=== PATIENT | male | born 1990 | race Caucasian/White ===

== ENCOUNTER 2018-02-04 22:29 | Inpatient (IN) | payer SELFPAY ==
[~2018-02-04] VITALS: Ht 190.5 cm; Wt 107.3 kg
[2018-02-04 22:33] VITALS: BP 168/101; PULSE 90; RESP 18; TEMP 97.4; O2SAT 100
[2018-02-04] MEDS ORDERED: ADENOSINE IV SOLN 3 MG/ML 2 ML VIAL ONE ×2 (22:45→22:55)
[2018-02-04] MEDS ORDERED: METOPROLOL TARTRATE 5 MG/5 ML VIAL IV PUSH STA (22:55)
[2018-02-04 22:57] VITALS: BP 139/99; PULSE 184; RESP 18; O2SAT 97
[2018-02-04 22:59] VITALS: BP 149/92; PULSE 177; RESP 18; O2SAT 97
[2018-02-04] MEDS ORDERED: DILTIAZEM HCL 25 MG/5 ML VIAL IV PUSH ONE (23:00)
[2018-02-04] MEDS ORDERED: DILTIAZEM HCL 50 MG/10 ML VIAL IV ONE (23:00)
[2018-02-04 23:06] VITALS: BP 166/77; PULSE 124; RESP 18; O2SAT 97
[2018-02-04 23:08] VITALS: BP 149/70; PULSE 108; O2SAT 97
--- NOTE | 2018-02-04 23:16 | PD ---
HPI Chief Complaint: Cardiac Complaint Time Seen by Provider: 23:03 Travel History International Travel<30 days: No Contact w/Intl Traveler<30days: No Traveled to known affect area: No History of Present Illness HPI 27yo M with no PMH presents to the ED with c/o fast heart rate for an hour. Said he has had this intermittently for 1.5 years but never lasted this long. Said he never seek any medical attention for this. Pt felt a little dizzy and sob as well. Denies any fever, chest pain, n/v, abdominal pain, focal weakness or numbness. Denies any family history of cardiac disease. PFSH Past Medical History Medical History: Denies Significant Hx Tetanus Vaccination: < 5 Years Influenza Vaccination: No Past Surgical History Surgical History: No Previous Surgery Social History Alcohol Use: No Tobacco Use: No Allergies-Medications (Allergen,Severity, Reaction): Coded Allergies: No Known Allergies (Unverified , 02/04/18) Review of Systems Except as stated in HPI: all other systems reviewed are Neg Physical Exam Narrative GENERAL: 27yo M in moderate distress. SKIN: Focused skin assessment warm/dry. HEAD: Atraumatic. Normocephalic. EYES: Pupils equal and round. No scleral icterus. No injection or drainage. ENT: No nasal bleeding or discharge. Mucous membranes pink and moist. NECK: Trachea midline. No JVD. CARDIOVASCULAR: Irregular rate and rhythm. No murmur appreciated. RESPIRATORY: No accessory muscle use. Clear to auscultation. Breath sounds equal bilaterally. GASTROINTESTINAL: Abdomen soft, non-tender, nondistended. MUSCULOSKELETAL: No obvious deformities. No clubbing. No cyanosis. No edema. NEUROLOGICAL: Awake and alert. No obvious cranial nerve deficits. Motor grossly within normal limits. Normal speech. PSYCHIATRIC: Appropriate mood and affect; insight and judgment normal. Data Data Last Documented VS Vital Signs Date Time Temp Pulse Resp B/P (MAP) Pulse Ox O2 Delivery O2 Flow Rate FiO2 02/05/18 01:15 101 18 126/71 (89) 100 Nasal Cannula 2.00 02/04/18 22:33 97.4 Orders Orders Adenosine Inj (Adenocard Inj) (02/04/18 22:45) Adenosine Inj (Adenocard Inj) (02/04/18 22:55) Metoprolol Tartrate Inj (Lopressor Inj) (02/04/18 22:55) Diltiazem Inj (Cardizem Inj) (02/04/18 23:00) Vital Signs (Adult) Q15MX4,Q4H (02/04/18 23:09) Sales Manager Prearranged Funerals / Telemetry LEON.Q8H (02/04/18 23:09) Cardiac Rhythm LEON.Q8H (02/04/18 23:09) Notify Dr: Other (02/04/18 23:09) Diltiazem Inj (Cardizem Inj) (02/04/18 23:15) Complete Blood Count With Diff (02/04/18 23:09) Basic Metabolic Panel (Bmp) (02/04/18 23:09) Prothrombin Time / Inr (Pt) (02/04/18 23:09) Act Partial Throm Time (Ptt) (02/04/18 23:09) Troponin I (02/04/18 23:09) Thyroid Stimulating Hormone (02/04/18 23:09) Chest, Single Ap (02/04/18 ) Adenosine Inj (Adenocard Inj) (02/04/18 23:45) Adenosine Inj (Adenocard Inj) (02/04/18 23:45) Diltiazem Inj (Cardizem Inj) (02/05/18 01:00) Admit To Inpatient (02/05/18 ) Vital Signs (Adult) Q4H (02/05/18 01:18) Activity Oob Ad Yi (02/05/18 01:18) Sales Manager Prearranged Funerals / Telemetry .CONTINUOUS (02/05/18 01:18) Intake + Output LEON.QSHIFT (02/05/18 01:18) Diet Regular Basic (02/05/18 Breakfast) Sodium Chlor 0.9% 1000 Ml Inj (Ns 1000 M (02/05/18 01:18) Sodium Chloride 0.9% Flush (Ns Flush) (02/05/18 01:30) Sodium Chloride 0.9% Flush (Ns Flush) (02/05/18 09:00) Ondansetron Inj (Zofran Inj) (02/05/18 01:30) Comprehensive Metabolic Panel (02/06/18 06:00) Complete Blood Count With Diff (02/06/18 06:00) Troponin I (02/05/18 06:00) Troponin I (02/05/18 12:00) Scd Bilateral/Knee High LEON.BID (02/05/18 01:18) Bravo Bilateral/Knee High LEON.QSHIFT (02/05/18 01:20) Acetaminophen (Tylenol) (02/05/18 01:30) Acetamin-Hydrocod 325-5 Mg ([place] 5-325 (02/05/18 01:30) Acetamin-Hydrocod 325-10 Mg ([place] 10-32 (02/05/18 01:30) Docusate Sodium-Senna (Sharron-Colace) (02/05/18 09:00) Magnesium Hydroxide Liq (Milk Of Magnesi (02/05/18 01:30) Sennosides (Senokot) (02/05/18 01:30) Bisacodyl Supp (Dulcolax Supp) (02/05/18 01:30) Lactulose Liq (Lactulose Liq) (02/05/18 01:30) Inpatient Certification (02/05/18 ) Consult Cardiology (02/05/18 ) Echo 2d Comp With Doppler (02/05/18 ) Admit Order (Ed Use Only) (02/05/18 01:20) Urinalysis - C+S If Indicated (02/05/18 01:21) Drug Screen, Random Urine (02/05/18 01:21) Lipid Profile (02/05/18 06:00) Labs Laboratory Tests Test 02/04/18 23:14 White Blood Count 11.4 TH/MM3 Red Blood Count 5.50 MIL/MM3 Hemoglobin 16.9 GM/DL Hematocrit 47.9 % Mean Corpuscular Volume 87.1 FL Mean Corpuscular Hemoglobin 30.7 PG Mean Corpuscular Hemoglobin Concent 35.3 % Red Cell Distribution Width 13.5 % Platelet Count 388 TH/MM3 Mean Platelet Volume 8.6 FL Neutrophils (%) (Auto) 39.3 % Lymphocytes (%) (Auto) 52.0 % Monocytes (%) (Auto) 6.4 % Eosinophils (%) (Auto) 1.8 % Basophils (%) (Auto) 0.5 % Neutrophils # (Auto) 4.5 TH/MM3 Lymphocytes # (Auto) 5.9 TH/MM3 Monocytes # (Auto) 0.7 TH/MM3 Eosinophils # (Auto) 0.2 TH/MM3 Basophils # (Auto) 0.1 TH/MM3 CBC Comment AUTO DIFF Differential Total Cells Counted 100 Neutrophils % (Manual) 30 % Band Neutrophils % 2 % Lymphocytes % 45 % Monocytes % 4 % Eosinophils % 2 % Neutrophils # (Manual) 3.6 TH/MM3 Differential Comment FINAL DIFF MANUAL Atypical Lymphocytes 17 % Platelet Estimate NORMAL Platelet Morphology Comment NORMAL Prothrombin Time 10.1 SEC Prothromb Time International Ratio 1.0 RATIO Activated Partial Thromboplast Time 28.4 SEC Blood Urea Nitrogen 13 MG/DL Creatinine 1.20 MG/DL Random Glucose 107 MG/DL Calcium Level 9.4 MG/DL Sodium Level 138 MEQ/L Potassium Level 4.1 MEQ/L Chloride Level 104 MEQ/L Carbon Dioxide Level 23.9 MEQ/L Anion Gap 10 MEQ/L Estimat Glomerular Filtration Rate 74 ML/MIN Troponin I LESS THAN 0.02 NG/ML Thyroid Stimulating Hormone 3rd Gen 0.769 uIU/ML MDM Medical Decision Making Medical Screen Exam Complete: Yes Emergency Medical Condition: Yes Interpretation(s) EKG: Afib at 198bpm. LAD. EKG #2: Afib at 110bpm. LAD. RBBB. Differential Diagnosis Afib RVR vs. SVT vs. narrow complex tachycardia Narrative Course 27yo M here with c/o fast heart rate. HR was between 190s to low 200s on exam. Pt has narrow complex tachycardia and it looked irregular times. Cardizem was initially ordered but I was informed that there was no cardizem in the entire ED and they have to get it from pharmacy. I did try adenosine 6mg and 12mg IV as that is available right now but it broke for a second and was back in the low 200s. I did try lopressor 5mg IV since cardizem was still not available. HR went down to 150s but is still fluctuating between 150s and 160s. We finally got the cardizem and 28mg IV given and HR improve to 90s to 100s. However, pt's heart rate is now back to 120s so cardizem drip ordered. Labs reviewed, WBC 11.4. H/H normal. TSH normal. BMP unremarkable. CXR negative. Pt has been on cardizem drip but HR is now back up so gave a second cardizem bolus of 0.35mg/kg IV. Pt's HR is now in the low 100s. Pt said he feels much better. Just a little tired. Said he is no longer dizzy or sob. Discussed with Dr. Lara and accepted to her service in [facility]. Critical Care Narrative Aggregate critical care time was 50 minutes. Time to perform other separately billable procedures was not included in the critical care time. My time did not include minutes spent treating any other patients simultaneously or on activities that did not directly contribute to the patient's treatment. The services I provided to this patient were to treat and/or prevent clinically significant deterioration that could result in: cardiovascular collapse or . I provided critical care services requiring my management, as noted below: Chart data review, documentation time, medication orders and management, vital sign assessments/reviewing monitor data, ordering and reviewing lab tests, ordering and interpreting/reviewing x-rays and diagnostic studies, care of the patient and discussion of the patient with the admitting physicians. Diagnosis Primary Impression: Atrial fibrillation with RVR Admitting Information Admitting Physician Requests: Fanny Ortez DO Feb 04, 2018 23:16
[2018-02-04] MEDS: DILTIAZEM INJ 125 MG in SODIUM CHLORIDE 0.9% INJ 100 ML IV PRN (23:44)
[2018-02-04] MEDS ORDERED: ADENOSINE IV SOLN 3 MG/ML 2 ML VIAL IV PUSH ONE ×2 (23:45)
--- NOTE | 2018-02-04 23:46 | RADRPT ---
EXAM DATE/TIME: 02/04/2018 23:32 [place] COMPARISON: No previous studies available for comparison. INDICATIONS : Shortness of breath and rapid heart rate for one day. MEDICAL HISTORY : None. SURGICAL HISTORY : None. ENCOUNTER: Initial ACUITY: 1 day PAIN SCORE: 0/10 LOCATION: Bilateral chest FINDINGS: A single view of the chest demonstrates the lungs to be symmetrically aerated without evidence of mas s, infiltrate or effusion. The cardiomediastinal contours are unremarkable. Osseous structures are intact. CONCLUSION: Normal examination. Alexis Corona Jr., MD on February 04, 2018 at 23:45 Board Certified Radiologist. This report was verified electronically.
[2018-02-05] VITALS (18 sets, daily range): BP systolic 120–154; BP diastolic 58–98; PULSE 60–137; RESP 14–28; TEMP 98.1–98.6; O2SAT 96–100
[2018-02-05 00:24] LABS: AUTOMATED NEUTROPHIL # 4.5 TH/MM3 (1.8-7.7); BASOPHIL # 0.1 TH/MM3 (0-0.2); BASOPHIL % 0.5 % (0.0-2.0); EOSINOPHIL # 0.2 TH/MM3 (0-0.4); EOSINOPHIL % 1.8 % (0.0-4.0); HEMATOCRIT 47.9 % (39.0-51.0); HEMOGLOBIN 16.9 GM/DL (13.0-17.0); LYMPHOCYTE # 5.9 TH/MM3 (1.0-4.8); MEAN CELL VOLUME 87.1 FL (80.0-100.0); MEAN CORPUSCULAR HEMOGLOBIN 30.7 PG (27.0-34.0); MEAN CORPUSCULAR HGB CONC 35.3 % (32.0-36.0); MEAN PLATELET VOLUME 8.6 FL (7.0-11.0); MONO % 6.4 % (0.0-8.0); MONOCYTE # 0.7 TH/MM3 (0-0.9); NEUT % 39.3 % (16.0-70.0); PLATELET COUNT 388 TH/MM3 (150-450); RED CELL DISTRIBUTION WIDTH 13.5 % (11.6-17.2); WHITE BLOOD COUNT 11.4 TH/MM3 (4.0-11.0)
[2018-02-05] MEDS ORDERED: DILTIAZEM HCL 25 MG/5 ML VIAL IV PUSH PRN (00:30)
[2018-02-05 00:42] LABS: PROTHROMBIN TIME - PATIENT 10.1 SEC (9.8-11.6)
[2018-02-05 00:47] LABS: TROPONIN I LESS THAN 0.02 NG/ML (0.02-0.05)
[2018-02-05 00:50] LABS: BICARBONATE 23.9 MEQ/L (21.0-32.0); BLOOD UREA NITROGEN 13 MG/DL (7-18); CALCIUM 9.4 MG/DL (8.5-10.1); CHLORIDE 104 MEQ/L (98-107); GLOMERULAR FILTRATION RATE 74 ML/MIN (>89); GLUCOSE,RANDOM 107 MG/DL (74-106); SODIUM (NA) 138 MEQ/L (136-145)
[2018-02-05] MEDS ORDERED: DILTIAZEM HCL 50 MG/10 ML VIAL IV ONE (01:00)
[2018-02-05] MEDS ORDERED: ONDANSETRON HCL 4 MG/2 ML VIAL IVP PRN (01:30)
[2018-02-05] MEDS ORDERED: SODIUM CHLORIDE 0.9% FLUSH 10 ML FLUSH IV FLUSH PRN (01:30)
[2018-02-05] MEDS ORDERED: MAGNESIUM HYDROXIDE SUSP 30 ML CUP PO PRN (01:30)
[2018-02-05] MEDS ORDERED: ACETAMINOPHEN/HYDROcodone 325 MG/10 MG TAB PO PRN (01:30)
[2018-02-05] MEDS ORDERED: LACTULOSE SYRUP 20 GM/30 ML CUP PO PRN (01:30)
[2018-02-05] MEDS ORDERED: SENNOSIDES 8.6 MG TAB PO PRN (01:30)
[2018-02-05] MEDS ORDERED: ACETAMINOPHEN 325 MG TAB PO PRN (01:30)
[2018-02-05] MEDS ORDERED: BISACODYL 10 MG SUPP RECTAL PRN (01:30)
[2018-02-05] MEDS ORDERED: ACETAMINOPHEN/HYDROcodone 325 MG/5 MG TAB PO PRN (01:30)
[2018-02-05 01:53] LABS: BILIRUBIN, URINE NEG (NEG); BLOOD, URINE NEG (NEG); GLUCOSE,URINE NEG (NEG); KETONE, URINE NEG (NEG); MUCUS URINE FEW /lpf (OCC); NITRITE,URINE NEG (NEG); URINE COLOR COLORLESS (YELLW/STRAW); URINE LEUKOCYTE ESTERASE NEG (NEG)
[2018-02-05 01:55] LABS: ATYPICAL LYMPHOCYTES 17 % (0-0); BANDS 2 % (0-6); LYMPHOCYTES 45 % (9-44); MONOCYTES 4 % (0-8); NEUTROPHIL # MANUAL DIFF 3.6 TH/MM3 (1.8-7.7); POLYS (SEG NEUTROPHILS) 30 % (16-70)
[2018-02-05] MEDS: SODIUM CHLOR 0.9% 1000 ML INJ 1,000 ML IV SCH ×2 (03:25→11:18)
--- NOTE | 2018-02-05 03:38 | HHI.HP ---
[facility] Unknown Admission Diagnosis Afib RVR Diagnoses: (1) Atrial fibrillation with RVR Diagnosis: Principal (2) Leukocytosis Diagnosis: Principal Travel History International Travel<30 Days: No Contact w/Intl Traveler <30 Da: No Traveled to Known Affected Are: No History of Present Illness This is a 27-year-old male with no significant PMH of present the ER with complaints of palpitations starting prior to arrival. States he was out fishing all day, then came home to watch golf at which time he had sudden onset of palpitations. Denies recent fever, chills, cough or chest pain. Reports history of similar symptoms in the past, approx 4-5 episodes in the last 1-2 yrs , did not seek medical attention those times, symptoms resolved spontaneously. On arrival, patient noted to be in A. fib with RVR, HR 160s. S/p Cardizem and Adenosine x2 in ER w/ no significant improvement, currently on Cardizem gtt. Denies drug use. Does report drinking approx 8-10 beers today which is usual for him on weekends. No significant caffeine intake. Review of Systems Except as stated in HPI: all other systems reviewed are Neg ROS: 14 point review of systems otherwise negative. Past Family Social History Past Medical History PMH: None Past Surgical History PAST SURGICAL HISTORY: None Allergies: Coded Allergies: No Known Allergies (Unverified , 02/04/18) Family History PAST FAMILY HISTORY: Reviewed. No h/o DM or CAD Social History PAST SOCIAL HISTORY: Alcohol on weekends. Negative for tobacco or drugs. Physical Exam Vital Signs Vital Signs Date Time Temp Pulse Resp B/P (MAP) Pulse Ox O2 Delivery O2 Flow Rate FiO2 02/05/18 03:13 98.1 94 18 120/58 (78) 100 02/05/18 01:15 101 18 126/71 (89) 100 Nasal Cannula 2.00 02/04/18 23:44 165 141/69 02/04/18 23:08 108 149/70 (96) 97 Nasal Cannula 2.00 02/04/18 23:06 124 18 166/77 (106) 97 02/04/18 22:59 177 18 149/92 (111) 97 02/04/18 22:57 184 18 139/99 (112) 97 02/04/18 22:42 185 18 98 02/04/18 22:33 97.4 90 18 168/101 (123) 100 Physical Exam PE: GENERAL: Very pleasant young white male in no acute distress. HEENT: PERRLA, EOMI. No scleral icterus or conjunctival pallor. No lid lag or facial droop. Facial sunburn CARDIOVASCULAR: Irregularly irregular, and A. fib, HR 110's. No obvious murmurs to auscultation. No chest tenderness to palpation. RESPIRATORY: No obvious rhonchi or wheezing. Clear to auscultation. Breath sounds equal bilaterally. GASTROINTESTINAL: Abdomen soft, non-tender, nondistended. BS normal. MUSCULOSKELETAL: Extremities without clubbing, cyanosis, or edema. No obvious deformities. NEUROLOGICAL: Awake, alert and oriented x4. No focal neurologic deficits. Moving both upper and lower extremities spontaneously. Laboratory Laboratory Tests Test 02/04/18 23:14 02/05/18 01:38 White Blood Count 11.4 Red Blood Count 5.50 Hemoglobin 16.9 Hematocrit 47.9 Mean Corpuscular Volume 87.1 Mean Corpuscular Hemoglobin 30.7 Mean Corpuscular Hemoglobin Concent 35.3 Red Cell Distribution Width 13.5 Platelet Count 388 Mean Platelet Volume 8.6 Neutrophils (%) (Auto) 39.3 Lymphocytes (%) (Auto) 52.0 Monocytes (%) (Auto) 6.4 Eosinophils (%) (Auto) 1.8 Basophils (%) (Auto) 0.5 Neutrophils # (Auto) 4.5 Lymphocytes # (Auto) 5.9 Monocytes # (Auto) 0.7 Eosinophils # (Auto) 0.2 Basophils # (Auto) 0.1 CBC Comment AUTO DIFF Differential Total Cells Counted 100 Neutrophils % (Manual) 30 Band Neutrophils % 2 Lymphocytes % 45 Monocytes % 4 Eosinophils % 2 Neutrophils # (Manual) 3.6 Differential Comment FINAL DIFF MANUAL Atypical Lymphocytes 17 Platelet Estimate NORMAL Platelet Morphology Comment NORMAL Prothrombin Time 10.1 Prothromb Time International Ratio 1.0 Activated Partial Thromboplast Time 28.4 Blood Urea Nitrogen 13 Creatinine 1.20 Random Glucose 107 Calcium Level 9.4 Sodium Level 138 Potassium Level 4.1 Chloride Level 104 Carbon Dioxide Level 23.9 Anion Gap 10 Estimat Glomerular Filtration Rate 74 Troponin I LESS THAN 0.02 Thyroid Stimulating Hormone 3rd Gen 0.769 Urine Color COLORLESS Urine Turbidity CLEAR Urine pH 5.0 Urine Specific [place] 1.004 Urine Protein NEG Urine Glucose (UA) NEG Urine Ketones NEG Urine Occult Blood NEG Urine Nitrite NEG Urine Bilirubin NEG Urine Urobilinogen LESS THAN 2.0 Urine Leukocyte Esterase NEG Urine RBC LESS THAN 1 Urine WBC LESS THAN 1 Urine Mucus FEW Microscopic Urinalysis Comment CULT NOT INDICATED Urine Opiates Screen NEG Urine Barbiturates Screen NEG Urine Amphetamines Screen NEG Urine Benzodiazepines Screen NEG Urine Cocaine Screen NEG Urine Cannabinoids Screen NEG Result Diagram: 02/04/18231302/04/182313 Caprini VTE Risk Assessment Caprini VTE Risk Assessment: No/Low Risk (score <= 1) Caprini Risk Assessment Model Point Value = 1 Point Value = 2 Point Value = 3 Point Value = 5 Age 41-60 Minor surgery BMI > 25 kg/m2 Swollen legs Varicose veins or History of unexplained or recurrent spontaneous Oral contraceptives or hormone replacement Sepsis (< 1 month) Serious lung disease, including pneumonia (< 1 month) Abnormal pulmonary function Acute myocardial infarction Congestive heart failure (< 1 month) History of inflammatory bowel disease Medical patient at bed rest Age 61-74 Arthroscopic surgery Major open surgery (> 45 min) Laparoscopic surgery (> 45 min) Malignancy Confined to bed (> 72 hours) Immobilizing plaster cast Central venous access Age >= 75 History of VTE Family history of VTE Factor V Leiden Prothrombin [id number] Lupus anticoagulant Anticardiolipin antibodies Elevated serum homocysteine Heparin-induced thrombocytopenia Other congenital or acquired thrombophilia Stroke (< 1 month) Elective arthroplasty Hip, pelvis, or leg fracture Acute spinal cord injury (< 1 month) Prophylaxis Regimen Total Risk Factor Score Risk Level Prophylaxis Regimen 0-1 Low Early ambulation 2 Moderate Order ONE of the following: *Sequential Compression Device (SCD) *Heparin 5000 units SQ BID 3-4 Higher Order ONE of the following medications: *Heparin 5000 units SQ TID *Enoxaparin/Lovenox 40 mg SQ daily (WT < 150 kg, CrCl > 30 mL/min) *Enoxaparin/Lovenox 30 mg SQ daily (WT < 150 kg, CrCl > 10-29 mL/min) *Enoxaparin/Lovenox 30 mg SQ BID (WT < 150 kg, CrCl > 30 mL/min) AND/OR *Sequential Compression Device (SCD) 5 or more Highest Order ONE of the following medications: *Heparin 5000 units SQ TID (Preferred with Epidurals) *Enoxaparin/Lovenox 40 mg SQ daily (WT < 150 kg, CrCl > 30 mL/min) *Enoxaparin/Lovenox 30 mg SQ daily (WT < 150 kg, CrCl > 10-29 mL/min) *Enoxaparin/Lovenox 30 mg SQ BID (WT < 150 kg, CrCl > 30 mL/min) AND *Sequential Compression Device (SCD) Assessment and Plan Problem List: (1) Atrial fibrillation with RVR ICD Code: I48.91 - Unspecified atrial fibrillation Status: Acute (2) Leukocytosis ICD Code: D72.829 - Elevated white blood cell count, unspecified Assessment and Plan A/P: 1. A. fib w/ RVR: New Onset. Acute onset of palpitations, A-fib w/ RVR, HR 160's on arrival, currently on Cardizem gtt, HR 100's. Initial trop negative, check serial cardiac enzymes to eval for ischemia although unlikely. Check TSH , Check U/a and Urine Drug Screen. Admit to [facility], telemetry. Check Echo to eval for valvular abnormality/cardiomyopathy. Consult Cardiology for further recommendations. 2. Leukocytosis: WBC 11.4, afebrile. CXR with no acute findings, images reviewed by me. No obvious source of infection. Will repeat labs in a.m. 3. DVT Prophylaxis: SCD/teds. 4. intake worker DC planning as needed. 6. Case discussed with ER physician at length, labs/records/imaging reviewed by me. Physician Certification 2 Midnight Certification Type: Admission for Inpatient Services Order for Inpatient Services The services are ordered in accordance with Medicare regulations or non- Medicare payer requirements, as applicable. In the case of services not specified as inpatient-only, they are appropriately provided as inpatient services in accordance with the 2-midnight benchmark. Estimated LOS (days): 2 days is the estimated time the patient will need to remain in the hospital, assuming treatment plan goals are met and no additional complications. Post-Hospital Plan: Not yet determined Tanya Lara MD Feb 05, 2018 03:38
[2018-02-05 05:36] LABS: CHOLESTEROL 212 MG/DL (120-200); TRIGLYCERIDES 83 MG/DL (42-150)
[2018-02-05 05:39] LABS: CHOLESTEROL/ HDL RATIO 3.19 RATIO; HDL CHOLESTEROL 66.4 MG/DL (40.0-60.0); LDL CHOLESTEROL 129 MG/DL (0-99); TROPONIN I LESS THAN 0.02 NG/ML (0.02-0.05)
[2018-02-05] MEDS ORDERED: METOPROLOL TARTRATE 5 MG/5 ML VIAL IV PUSH ONE (08:15)
[2018-02-05] MEDS: DOCUSATE SODIUM 50 MG/SENNA 8.6 MG TAB PO SCH ×2 (08:20→21:00)
[2018-02-05] MEDS: METOPROLOL TARTRATE 25 MG TAB PO SCH ×2 (08:21→21:49)
[2018-02-05] MEDS ORDERED: METOPROLOL TARTRATE 25 MG TAB PO SCH (08:45)
[2018-02-05] MEDS: SODIUM CHLORIDE 0.9% FLUSH 10 ML FLUSH IV FLUSH SCH ×2 (08:57→21:00)
[2018-02-05] MEDS ORDERED: DILTIAZEM-CD 240 MG CAP ER PO SCH (09:45)
--- NOTE | 2018-02-05 09:58 | MB ---
cc: Mumtaz Garcia MD DATE OF CONSULT: 02/05/2018 REASON FOR CONSULTATION: Evaluation of A-fib. HISTORY OF PRESENT ILLNESS: Adonis Andersen is a 27-year-old man with new onset of atrial fibrillation. The patient has been having, over the past 1-1/2 years, 5-10 times where he felt like his heart was fluttering and beating fast. Last night it was unusual in that it would not stop. It started when he was in bed. He cannot think of anything he did to provoke it. There is no illicit drug use. He came in with rapid A-fib. He is now on a Cardizem drip. The patient has been healthy before, he had a healthy childhood. No history of any exercise intolerance. No family history of A-fib. His father has hypertension. No other family members he knows of with atrial fib. No other recent illnesses. PAST MEDICAL HISTORY: Negative. PAST SURGICAL HISTORY: Negative. FAMILY HISTORY: Positive for hypertension. SOCIAL HISTORY: Negative for alcohol, tobacco or drugs. PHYSICAL EXAMINATION: GENERAL: A robust, well-developed white male in no acute distress. VITAL SIGNS: Charted. HEENT: Exam unremarkable. NECK: No JVD, no bruits. CHEST: Clear to auscultation. CARDIAC EXAM: S1, S2. Irregular rate and rhythm. No murmurs or gallops. ABDOMEN: Soft, nontender. No masses or organomegaly. EXTREMITIES: No clubbing, cyanosis or edema. Pulses are intact. EKG A-fib with RVR, incomplete right bundle branch block. CHEST X-RAY: Normal. LABORATORY DATA: Creatinine is 1.2. LDL is 120, total cholesterol 212, HDL 66, triglycerides 83. Hematocrit 47.9. IMPRESSION: New onset atrial fibrillation with rapid ventricular response. No evidence for structural heart disease at this point. RECOMMENDATIONS: 1. Check a 2-D echo Doppler study. 2. Initiate rate control with beta zack and Cardizem. 3. I have texted Dr. Iglesias to see whether he would want me to add an anticoagulation prior to referral to him. 4. The patient will need to be referred to cardiac corrective therapy aide, possibly would be candidate for ablation to achieve sinus rhythm. MD SON Caputo/PERCY , 09:46 AM , 09:57 AM
--- NOTE | 2018-02-05 12:18 | HHI.PR ---
Subjective Remarks This is a 27-year-old male with no significant PMH of present the ER with complaints of palpitations starting prior to arrival. States he was out fishing all day, then came home to watch golf at which time he had sudden onset of palpitations. Denies recent fever, chills, cough or chest pain. Reports history of similar symptoms in the past, approx 4-5 episodes in the last 1-2 yrs, did not seek medical attention those times, symptoms resolved spontaneously. On arrival, patient noted to be in A. fib with RVR, HR 160s. S/p Cardizem and Adenosine x2 in ER w/ no significant improvement, currently on Cardizem gtt. Denies drug use. Does report drinking approx 8-10 beers today which is usual for him on weekends. No significant caffeine intake. 02/05: patient admitted today and I have been called by Nurse, the patient is on Cardizem drip and continue with PAF heart rate in 150 added one dose of Metoprolol 5 mg one dose and continue metoprolol 25 mg BID. improving condition. Objective Vital Signs Date Time Temp Pulse Resp B/P (MAP) Pulse Ox O2 Delivery O2 Flow Rate FiO2 02/05/18 10:52 81 18 150/68 (95) 99 Room Air 02/05/18 08:57 90 28 136/78 (97) 96 Room Air 02/05/18 08:21 89 18 123/71 (88) 96 Room Air 02/05/18 07:02 132 124/26 02/05/18 06:56 137 18 134/68 (90) 96 02/05/18 06:18 115 123/66 02/05/18 05:50 101 18 128/67 (87) 100 02/05/18 03:13 98.1 94 18 120/58 (78) 100 02/05/18 01:15 101 18 126/71 (89) 100 Nasal Cannula 2.00 02/04/18 23:44 165 141/69 02/04/18 23:08 108 149/70 (96) 97 Nasal Cannula 2.00 02/04/18 23:06 124 18 166/77 (106) 97 02/04/18 22:59 177 18 149/92 (111) 97 02/04/18 22:57 184 18 139/99 (112) 97 3/11/18 22:42 185 18 98 02/04/18 22:33 97.4 90 18 168/101 (123) 100 Result Diagram: 02/04/18 2314 02/04/18 2314 Imaging Last Impressions Chest X-Ray 02/04/18 0000 Signed Impressions: Service Date/Time: Sunday, February 04, 2018 23:32 - CONCLUSION: Normal examination. Alexis Corona Jr., MD Procedures None Other Results Laboratory Tests Test 02/04/18 23:14 02/05/18 01:38 02/05/18 04:24 White Blood Count 11.4 TH/MM3 Red Blood Count 5.50 MIL/MM3 Hemoglobin 16.9 GM/DL Hematocrit 47.9 % Mean Corpuscular Volume 87.1 FL Mean Corpuscular Hemoglobin 30.7 PG Mean Corpuscular Hemoglobin Concent 35.3 % Red Cell Distribution Width 13.5 % Platelet Count 388 TH/MM3 Mean Platelet Volume 8.6 FL Neutrophils (%) (Auto) 39.3 % Lymphocytes (%) (Auto) 52.0 % Monocytes (%) (Auto) 6.4 % Eosinophils (%) (Auto) 1.8 % Basophils (%) (Auto) 0.5 % Neutrophils # (Auto) 4.5 TH/MM3 Lymphocytes # (Auto) 5.9 TH/MM3 Monocytes # (Auto) 0.7 TH/MM3 Eosinophils # (Auto) 0.2 TH/MM3 Basophils # (Auto) 0.1 TH/MM3 CBC Comment AUTO DIFF Differential Total Cells Counted 100 Neutrophils % (Manual) 30 % Band Neutrophils % 2 % Lymphocytes % 45 % Monocytes % 4 % Eosinophils % 2 % Neutrophils # (Manual) 3.6 TH/MM3 Differential Comment FINAL DIFF MANUAL Atypical Lymphocytes 17 % Platelet Estimate NORMAL Platelet Morphology Comment NORMAL Prothrombin Time 10.1 SEC Prothromb Time International Ratio 1.0 RATIO Activated Partial Thromboplast Time 28.4 SEC Blood Urea Nitrogen 13 MG/DL Creatinine 1.20 MG/DL Random Glucose 107 MG/DL Calcium Level 9.4 MG/DL Sodium Level 138 MEQ/L Potassium Level 4.1 MEQ/L Chloride Level 104 MEQ/L Carbon Dioxide Level 23.9 MEQ/L Anion Gap 10 MEQ/L Estimat Glomerular Filtration Rate 74 ML/MIN Thyroid Stimulating Hormone 3rd Gen 0.769 uIU/ML Urine Color COLORLESS Urine Turbidity CLEAR Urine pH 5.0 Urine Specific [place] 1.004 Urine Protein NEG mg/dL Urine Glucose (UA) NEG mg/dL Urine Ketones NEG mg/dL Urine Occult Blood NEG Urine Nitrite NEG Urine Bilirubin NEG Urine Urobilinogen LESS THAN 2.0 MG/DL Urine Leukocyte Esterase NEG Urine RBC LESS THAN 1 /hpf Urine WBC LESS THAN 1 /hpf Urine Mucus FEW /lpf Microscopic Urinalysis Comment CULT NOT INDICATED Urine Opiates Screen NEG Urine Barbiturates Screen NEG Urine Amphetamines Screen NEG Urine Benzodiazepines Screen NEG Urine Cocaine Screen NEG Urine Cannabinoids Screen NEG Troponin I LESS THAN 0.02 NG/ML Triglycerides Level 83 MG/DL Cholesterol Level 212 MG/DL LDL Cholesterol 129 MG/DL HDL Cholesterol 66.4 MG/DL Cholesterol/HDL Ratio 3.19 RATIO Objective Remarks GENERAL: Obese patient in no acute distress. HEENT: PERRLA, EOMI. No scleral icterus or conjunctival pallor. No lid lag or facial droop. Facial sunburn CARDIOVASCULAR: Irregularly irregular, and A. fib, HR 110's. No obvious murmurs to auscultation. No chest tenderness to palpation. RESPIRATORY: No obvious rhonchi or wheezing. Clear to auscultation. Breath sounds equal bilaterally. GASTROINTESTINAL: Abdomen soft, non-tender, nondistended. BS normal. MUSCULOSKELETAL: Extremities without clubbing, cyanosis, or edema. No obvious deformities. NEUROLOGICAL: Awake, alert and oriented x4. No focal neurologic deficits. Moving both upper and lower extremities spontaneously. Medications and IVs Current Medications Medications (Trade) Dose Ordered Sig/Marcel Route Start Time Stop Time Status Last Admin Diltiazem HCl 125 mg/Sodium Chloride 125 ml @ 5 mls/hr TITRATE PRN IV 02/04/18 23:15 02/04/18 23:44 Sodium Chloride 1,000 ml @ 100 mls/hr Q10H IV 02/05/18 01:18 02/05/18 11:18 (NS Flush) 2 ml UNSCH PRN IV FLUSH 02/05/18 01:30 (NS Flush) 2 ml BID IV FLUSH 02/05/18 09:00 (Zofran Inj) 4 mg Q6H PRN IVP 02/05/18 01:30 (Tylenol) 650 mg Q6H PRN PO 02/05/18 01:30 ([place] 5-325 Mg) 1 tab Q4H PRN PO 02/05/18 01:30 ([place] 10-325 Mg) 1 tab Q4H PRN PO 02/05/18 01:30 (Sharron-Colace) 1 tab BID PO 02/05/18 09:00 (Milk Of Magnesia Liq) 30 ml Q12H PRN PO 02/05/18 01:30 (Senokot) 17.2 mg Q12H PRN PO 02/05/18 01:30 (Dulcolax Supp) 10 mg DAILY PRN RECTAL 02/05/18 01:30 (Lactulose Liq) 30 ml DAILY PRN PO 02/05/18 01:30 (Lopressor) 25 mg Q12HR PO 02/05/18 09:00 02/05/18 08:21 (Cardizem Cd) 240 mg DAILY PO 02/05/18 09:45 02/05/18 10:47 A/P Assessment and Plan (1) Atrial fibrillation with RVR ICD Code: I48.91 - Unspecified atrial fibrillation Status: Acute (2) Leukocytosis ICD Code: D72.829 - Elevated white blood cell count, unspecified Assessment and Plan A/P: 1. A. fib w/ RVR: New Onset. Acute onset of palpitations, A-fib w/ RVR, HR 160's on arrival, currently on Cardizem gtt, HR 100's. Initial trop negative, check serial cardiac enzymes to eval for ischemia although unlikely. Check TSH, Check U/a and Urine Drug Screen. Admit to [facility], telemetry. Check Echo to eval for valvular abnormality/cardiomyopathy. Consult Cardiology for further recommendations. Added metoprolol 5 mg IV one dose and metoprolol 25 mg BID starting now due to 2. Leukocytosis: WBC 11.4, afebrile. CXR with no acute findings, images reviewed by me. No obvious source of infection. Will repeat labs in a.m. DVT Prophylaxis: SCD/teds. Discharge Planning once cleared by technical specialist cytogenetics. Reese Martínez MD Feb 05, 2018 12:18
[2018-02-05] MEDS: DILTIAZEM INJ 125 MG in SODIUM CHLORIDE 0.9% INJ 100 ML IV PRN (16:08)
--- NOTE | 2018-02-05 18:10 | EKG ---
Date Performed: 02/04/2018 Time Performed: 23:11:36 PTAGE: 27 years EKG: ATRIAL FIBRILLATION WITH RAPID VENTRICULAR RESPONSE INCOMPLETE RIGHT BUNDLE BRANCH BLOCK AB NORMAL RHYTHM ECG NO PREVIOUS TRACING DOCTOR: Akua Villanueva Interpretating Date/Time 02/05/2018 18:09:01
[2018-02-06] VITALS (8 sets, daily range): BP systolic 125–170; BP diastolic 82–88; PULSE 56–86; RESP 14–18; TEMP 98.1–98.6; O2SAT 97–98
[2018-02-06 06:50] LABS: AUTOMATED NEUTROPHIL # 6.2 TH/MM3 (1.8-7.7); BASOPHIL # 0.1 TH/MM3 (0-0.2); BASOPHIL % 0.5 % (0.0-2.0); EOSINOPHIL # 0.2 TH/MM3 (0-0.4); EOSINOPHIL % 1.8 % (0.0-4.0); HEMATOCRIT 46.8 % (39.0-51.0); HEMOGLOBIN 16.5 GM/DL (13.0-17.0); LYMPH % 33.2 % (9.0-44.0); LYMPHOCYTE # 3.9 TH/MM3 (1.0-4.8); MEAN CELL VOLUME 87.9 FL (80.0-100.0); MEAN CORPUSCULAR HGB CONC 35.2 % (32.0-36.0); MEAN PLATELET VOLUME 8.6 FL (7.0-11.0); MONO % 11.5 % (0.0-8.0); MONOCYTE # 1.3 TH/MM3 (0-0.9); PLATELET COUNT 298 TH/MM3 (150-450); RED BLOOD COUNT 5.32 MIL/MM3 (4.50-5.90); RED CELL DISTRIBUTION WIDTH 13.6 % (11.6-17.2); WHITE BLOOD COUNT 11.7 TH/MM3 (4.0-11.0)
[2018-02-06 07:05] LABS: ALBUMIN 3.9 GM/DL (3.4-5.0); ALT (GPT) 45 U/L (12-78); AST (GOT) 26 U/L (15-37); BICARBONATE 29.1 MEQ/L (21.0-32.0); BLOOD UREA NITROGEN 17 MG/DL (7-18); CALCIUM 9.3 MG/DL (8.5-10.1); CHLORIDE 105 MEQ/L (98-107); CREATININE 1.05 MG/DL (0.60-1.30); GLOMERULAR FILTRATION RATE 86 ML/MIN (>89); GLUCOSE,RANDOM 91 MG/DL (74-106); SODIUM (NA) 141 MEQ/L (136-145)
[2018-02-06 07:07] LABS: ALKALINE PHOSPHATASE 86 U/L (45-117); TOTAL BILIRUBIN ADULT 0.5 MG/DL (0.2-1.0); TOTAL PROTEIN 7.8 GM/DL (6.4-8.2)
--- NOTE | 2018-02-06 07:39 | PD.CARD.PN ---
Subjective Subjective Remarks OK to DC home Objective Medications Current Medications Medications (Trade) Dose Ordered Sig/Marcel Route Start Time Stop Time Status Last Admin Sodium Chloride 1,000 ml @ 100 mls/hr Q10H IV 02/05/18 01:18 02/05/18 11:18 (NS Flush) 2 ml UNSCH PRN IV FLUSH 02/05/18 01:30 (NS Flush) 2 ml BID IV FLUSH 02/05/18 09:00 (Zofran Inj) 4 mg Q6H PRN IVP 02/05/18 01:30 (Tylenol) 650 mg Q6H PRN PO 02/05/18 01:30 ([place] 5-325 Mg) 1 tab Q4H PRN PO 02/05/18 01:30 ([place] 10-325 Mg) 1 tab Q4H PRN PO 02/05/18 01:30 (Sharron-Colace) 1 tab BID PO 02/05/18 09:00 (Milk Of Magnesia Liq) 30 ml Q12H PRN PO 02/05/18 01:30 (Senokot) 17.2 mg Q12H PRN PO 02/05/18 01:30 (Dulcolax Supp) 10 mg DAILY PRN RECTAL 02/05/18 01:30 (Lactulose Liq) 30 ml DAILY PRN PO 02/05/18 01:30 (Lopressor) 25 mg Q12HR PO 02/05/18 09:00 02/05/18 21:49 (Cardizem Cd) 240 mg DAILY PO 02/05/18 09:45 02/05/18 10:47 Vital Signs / I&O Vital Signs Date Time Temp Pulse Resp B/P (MAP) Pulse Ox O2 Delivery O2 Flow Rate FiO2 02/06/18 06:00 63 02/06/18 05:00 63 02/06/18 04:00 98.1 72 16 125/87 (100) 97 02/06/18 04:00 75 02/06/18 03:00 56 02/06/18 02:00 73 02/06/18 01:00 76 02/06/18 00:00 56 02/06/18 00:00 98.6 63 14 131/82 (98) 98 02/05/18 23:00 60 02/05/18 22:00 84 02/05/18 21:00 84 3/12/18 20:00 80 02/05/18 20:00 98.6 82 14 154/98 (116) 97 02/05/18 19:00 86 02/05/18 17:01 81 02/05/18 16:08 86 172/70 02/05/18 16:00 84 02/05/18 15:05 98.6 86 18 153/79 (103) 99 02/05/18 15:00 88 02/05/18 14:01 98.6 80 18 128/77 (94) 96 02/05/18 14:00 78 02/05/18 10:52 81 18 150/68 (95) 99 Room Air 02/05/18 08:57 90 28 136/78 (97) 96 Room Air 02/05/18 08:21 89 18 123/71 (88) 96 Room Air I/O 02/05/18 02/05/18 02/05/18 02/06/18 02/06/18 02/06/18 07:00 15:00 23:00 07:00 15:00 23:00 Intake Total 240 ml 480 ml Output Total 900 ml 575 ml Balance -660 ml -95 ml Intake Oral 240 ml 480 ml Output Urine Total 900 ml 575 ml # Voids 1 # Bowel Movements 0 Physical Exam GENERAL: Well developed, well nourished. No acute distress. HEENT: Jugular venous pressure is normal. CHEST: Lungs clear to auscultation bilaterally. Unlabored respiratory effort. CARDIAC: Regular rate and rhythm without S3, S4, or murmur. ABDOMEN: Soft, nontender, no hepatosplenomegaly. Bowel sounds present. EXTREMITIES: No clubbing, cyanosis, or edema. Laboratory Laboratory Tests Test 02/05/18 18:08 02/06/18 05:05 Troponin I LESS THAN 0.02 NG/ML White Blood Count 11.7 TH/MM3 Red Blood Count 5.32 MIL/MM3 Hemoglobin 16.5 GM/DL Hematocrit 46.8 % Mean Corpuscular Volume 87.9 FL Mean Corpuscular Hemoglobin 31.0 PG Mean Corpuscular Hemoglobin Concent 35.2 % Red Cell Distribution Width 13.6 % Platelet Count 298 TH/MM3 Mean Platelet Volume 8.6 FL Neutrophils (%) (Auto) 53.0 % Lymphocytes (%) (Auto) 33.2 % Monocytes (%) (Auto) 11.5 % Eosinophils (%) (Auto) 1.8 % Basophils (%) (Auto) 0.5 % Neutrophils # (Auto) 6.2 TH/MM3 Lymphocytes # (Auto) 3.9 TH/MM3 Monocytes # (Auto) 1.3 TH/MM3 Eosinophils # (Auto) 0.2 TH/MM3 Basophils # (Auto) 0.1 TH/MM3 CBC Comment DIFF FINAL Differential Comment Blood Urea Nitrogen 17 MG/DL Creatinine 1.05 MG/DL Random Glucose 91 MG/DL Total Protein 7.8 GM/DL Albumin 3.9 GM/DL Calcium Level 9.3 MG/DL Alkaline Phosphatase 86 U/L Aspartate Amino Transf (AST/SGOT) 26 U/L Alanine Aminotransferase (ALT/SGPT) 45 U/L Total Bilirubin 0.5 MG/DL Sodium Level 141 MEQ/L Potassium Level 3.7 MEQ/L Chloride Level 105 MEQ/L Carbon Dioxide Level 29.1 MEQ/L Anion Gap 7 MEQ/L Estimat Glomerular Filtration Rate 86 ML/MIN Assessment and Plan Problem List: (1) Atrial fibrillation with RVR ICD Codes: I48.91 - Unspecified atrial fibrillation Status: Acute Plan: OK to DC home. Will do echo as OP in my office. Dilt [address] Iglesias after discharge. Mumtaz Garcia MD Feb 06, 2018 07:39
[2018-02-06] MEDS ORDERED: DILTIAZEM-CD 180 MG CAP ER PO SCH (09:00)
[2018-02-06] MEDS: DOCUSATE SODIUM 50 MG/SENNA 8.6 MG TAB PO SCH (09:00)
--- NOTE | 2018-02-06 09:18 | HHI.PR ---
Subjective Remarks This is a 27-year-old male with no significant PMH of present the ER with complaints of palpitations starting prior to arrival. States he was out fishing all day, then came home to watch golf at which time he had sudden onset of palpitations. Denies recent fever, chills, cough or chest pain. Reports history of similar symptoms in the past, approx 4-5 episodes in the last 1-2 yrs, did not seek medical attention those times, symptoms resolved spontaneously. On arrival, patient noted to be in A. fib with RVR, HR 160s. S/p Cardizem and Adenosine x2 in ER w/ no significant improvement, currently on Cardizem gtt. Denies drug use. Does report drinking approx 8-10 beers today which is usual for him on weekends. No significant caffeine intake. 02/05: patient admitted today and I have been called by Nurse, the patient is on Cardizem drip and continue with PAF heart rate in 150 added one dose of Metoprolol 5 mg one dose and continue metoprolol 25 mg BID. improving condition. 02/06: Seen in his bedroom, stable as per retail presentation specialist doctor Mumtaz Garcia okay to discharge Will do echo as OP in my office. Dilt [address] Iglesias after discharge. no nausea, vomit or diarrhea. Objective Vital Signs Date Time Temp Pulse Resp B/P (MAP) Pulse Ox O2 Delivery O2 Flow Rate FiO2 02/06/18 06:00 63 02/06/18 05:00 63 02/06/18 04:00 98.1 72 16 125/87 (100) 97 02/06/18 04:00 75 02/06/18 03:00 56 02/06/18 02:00 73 02/06/18 01:00 76 02/06/18 00:00 56 02/06/18 00:00 98.6 63 14 131/82 (98) 98 02/05/18 23:00 60 02/05/18 22:00 84 02/05/18 21:00 84 02/05/18 20:00 80 02/05/18 20:00 98.6 82 14 154/98 (116) 97 02/05/18 19:00 86 02/05/18 17:01 81 02/05/18 16:08 86 172/70 02/05/18 16:00 84 02/05/18 15:05 98.6 86 18 153/79 (103) 99 02/05/18 15:00 88 02/05/18 14:01 98.6 80 18 128/77 (94) 96 02/05/18 14:00 78 02/05/18 10:52 81 18 150/68 (95) 99 Room Air I/O 02/05/18 02/05/18 02/05/18 02/06/18 02/06/18 02/06/18 07:00 15:00 23:00 07:00 15:00 23:00 Intake Total 240 ml 480 ml Output Total 900 ml 575 ml Balance -660 ml -95 ml Intake Oral 240 ml 480 ml Output Urine Total 900 ml 575 ml # Voids 1 # Bowel Movements 0 Result Diagram: 02/06/18 0505 02/06/18 0505 Imaging Last Impressions Chest X-Ray 02/04/18 0000 Signed Impressions: Service Date/Time: Sunday, February 04, 2018 23:32 - CONCLUSION: Normal examination. Alexis Corona Jr., MD Procedures None Other Results Laboratory Tests Test 02/04/18 23:14 02/05/18 01:38 02/05/18 04:24 02/05/18 18:08 Differential Total Cells Counted 100 Neutrophils % (Manual) 30 % Band Neutrophils % 2 % Lymphocytes % 45 % Monocytes % 4 % Eosinophils % 2 % Neutrophils # (Manual) 3.6 TH/MM3 Atypical Lymphocytes 17 % Platelet Estimate NORMAL Platelet Morphology Comment NORMAL Prothrombin Time 10.1 SEC Prothromb Time International Ratio 1.0 RATIO Activated Partial Thromboplast Time 28.4 SEC Thyroid Stimulating Hormone 3rd Gen 0.769 uIU/ML Urine Color COLORLESS Urine Turbidity CLEAR Urine pH 5.0 Urine Specific [place] 1.004 Urine Protein NEG mg/dL Urine Glucose (UA) NEG mg/dL Urine Ketones NEG mg/dL Urine Occult Blood NEG Urine Nitrite NEG Urine Bilirubin NEG Urine Urobilinogen LESS THAN 2.0 MG/DL Urine Leukocyte Esterase NEG Urine RBC LESS THAN 1 /hpf Urine WBC LESS THAN 1 /hpf Urine Mucus FEW /lpf Microscopic Urinalysis Comment CULT NOT INDICATED Urine Opiates Screen NEG Urine Barbiturates Screen NEG Urine Amphetamines Screen NEG Urine Benzodiazepines Screen NEG Urine Cocaine Screen NEG Urine Cannabinoids Screen NEG Triglycerides Level 83 MG/DL Cholesterol Level 212 MG/DL LDL Cholesterol 129 MG/DL HDL Cholesterol 66.4 MG/DL Cholesterol/HDL Ratio 3.19 RATIO Troponin I LESS THAN 0.02 NG/ML Test 02/06/18 05:05 White Blood Count 11.7 TH/MM3 Red Blood Count 5.32 MIL/MM3 Hemoglobin 16.5 GM/DL Hematocrit 46.8 % Mean Corpuscular Volume 87.9 FL Mean Corpuscular Hemoglobin 31.0 PG Mean Corpuscular Hemoglobin Concent 35.2 % Red Cell Distribution Width 13.6 % Platelet Count 298 TH/MM3 Mean Platelet Volume 8.6 FL Neutrophils (%) (Auto) 53.0 % Lymphocytes (%) (Auto) 33.2 % Monocytes (%) (Auto) 11.5 % Eosinophils (%) (Auto) 1.8 % Basophils (%) (Auto) 0.5 % Neutrophils # (Auto) 6.2 TH/MM3 Lymphocytes # (Auto) 3.9 TH/MM3 Monocytes # (Auto) 1.3 TH/MM3 Eosinophils # (Auto) 0.2 TH/MM3 Basophils # (Auto) 0.1 TH/MM3 CBC Comment DIFF FINAL Differential Comment Blood Urea Nitrogen 17 MG/DL Creatinine 1.05 MG/DL Random Glucose 91 MG/DL Total Protein 7.8 GM/DL Albumin 3.9 GM/DL Calcium Level 9.3 MG/DL Alkaline Phosphatase 86 U/L Aspartate Amino Transf (AST/SGOT) 26 U/L Alanine Aminotransferase (ALT/SGPT) 45 U/L Total Bilirubin 0.5 MG/DL Sodium Level 141 MEQ/L Potassium Level 3.7 MEQ/L Chloride Level 105 MEQ/L Carbon Dioxide Level 29.1 MEQ/L Anion Gap 7 MEQ/L Estimat Glomerular Filtration Rate 86 ML/MIN Objective Remarks GENERAL: Obese patient in no acute distress. HEENT: PERRLA, EOMI. No scleral icterus or conjunctival pallor. No lid lag or facial droop. Facial sunburn CARDIOVASCULAR: Irregularly irregular, and A. fib, HR 110's. No obvious murmurs to auscultation. No chest tenderness to palpation. RESPIRATORY: No obvious rhonchi or wheezing. Clear to auscultation. Breath sounds equal bilaterally. GASTROINTESTINAL: Abdomen soft, non-tender, nondistended. BS normal. MUSCULOSKELETAL: Extremities without clubbing, cyanosis, or edema. No obvious deformities. NEUROLOGICAL: Awake, alert and oriented x4. No focal neurologic deficits. Moving both upper and lower extremities spontaneously. Medications and IVs Current Medications Medications (Trade) Dose Ordered Sig/Marcel Route Start Time Stop Time Status Last Admin Sodium Chloride 1,000 ml @ 100 mls/hr Q10H IV 02/05/18 01:18 02/05/18 11:18 (NS Flush) 2 ml UNSCH PRN IV FLUSH 02/05/18 01:30 (NS Flush) 2 ml BID IV FLUSH 02/05/18 09:00 (Zofran Inj) 4 mg Q6H PRN IVP 02/05/18 01:30 (Tylenol) 650 mg Q6H PRN PO 02/05/18 01:30 ([place] 5-325 Mg) 1 tab Q4H PRN PO 02/05/18 01:30 ([place] 10-325 Mg) 1 tab Q4H PRN PO 02/05/18 01:30 (Sharron-Colace) 1 tab BID PO 02/05/18 09:00 (Milk Of Magnesia Liq) 30 ml Q12H PRN PO 02/05/18 01:30 (Senokot) 17.2 mg Q12H PRN PO 02/05/18 01:30 (Dulcolax Supp) 10 mg DAILY PRN RECTAL 02/05/18 01:30 (Lactulose Liq) 30 ml DAILY PRN PO 02/05/18 01:30 (Cardizem Cd) 180 mg DAILY PO 02/06/18 09:00 A/P Assessment and Plan (1) Atrial fibrillation with RVR ICD Code: I48.91 - Unspecified atrial fibrillation Status: Acute (2) Leukocytosis ICD Code: D72.829 - Elevated white blood cell count, unspecified Assessment and Plan A/P: 1. A. fib w/ RVR: New Onset. Acute onset of palpitations, A-fib w/ RVR, HR 160's on arrival, currently on Cardizem gtt, HR 100's. Initial trop negative, check serial cardiac enzymes to eval for ischemia although unlikely. Check TSH, Check U/a and Urine Drug Screen. Admit to [facility], telemetry. Check Echo to eval for valvular abnormality/cardiomyopathy. Seen in his bedroom, stable as per retail presentation specialist doctor Mumtaz Garcia okay to discharge Will do echo as OP in my office. Dilt [address] Iglesias after discharge. at this time mild Hypertension but the patient is been controlled will need to follow to adjust his medicines at this time asymptomatic. recommended to continue his Medicines. 2. Leukocytosis: WBC 11.4, afebrile. CXR with no acute findings, images reviewed by me. No obvious source of infection. DVT Prophylaxis: SCD/teds. Discharge Planning Discharge Home and follow with retail presentation specialist to follow Hypertension, and Atrial Fibrillation. Reese Martínez MD Feb 06, 2018 09:18
[2018-02-06] MEDS: SODIUM CHLORIDE 0.9% FLUSH 10 ML FLUSH IV FLUSH SCH (09:31)
[2018-02-06] MEDS ORDERED: CARD180C5 PO (09:38)
--- NOTE | 2018-02-06 11:20 | HHI.DS ---
Discharge Summary Admission Date Feb 05, 2018 at 01:22 Discharge Date: Feb 06, 2018 Admitting Diagnosis Afib RVR (1) Atrial fibrillation with RVR ICD Code: I48.91 - Unspecified atrial fibrillation Diagnosis: Principal Status: Acute (2) Leukocytosis ICD Code: D72.829 - Elevated white blood cell count, unspecified Diagnosis: Secondary Procedures None Brief History - From Admission This is a 27-year-old male with no significant PMH of present the ER with complaints of palpitations starting prior to arrival. States he was out fishing all day, then came home to watch golf at which time he had sudden onset of palpitations. Denies recent fever, chills, cough or chest pain. Reports history of similar symptoms in the past, approx 4-5 episodes in the last 1-2 yrs , did not seek medical attention those times, symptoms resolved spontaneously. On arrival, patient noted to be in A. fib with RVR, HR 160s. S/p Cardizem and Adenosine x2 in ER w/ no significant improvement, currently on Cardizem gtt. Denies drug use. Does report drinking approx 8-10 beers today which is usual for him on weekends. No significant caffeine intake. CBC/BMP: 02/06/18 0505 02/06/18 0505 Significant Findings Laboratory Tests Test 02/04/18 23:14 02/05/18 01:38 02/05/18 04:24 02/05/18 18:08 White Blood Count 11.4 TH/MM3 (4.0-11.0) Lymphocytes (%) (Auto) 52.0 % (9.0-44.0) Lymphocytes # (Auto) 5.9 TH/MM3 (1.0-4.8) Lymphocytes % 45 % (9-44) Atypical Lymphocytes 17 % (0-0) Random Glucose 107 MG/DL (74-106) Estimat Glomerular Filtration Rate 74 ML/MIN (>89) Troponin I LESS THAN 0.02 NG/ML LESS THAN 0.02 NG/ML LESS THAN 0.02 NG/ML Urine Mucus FEW /lpf (OCC) Cholesterol Level 212 MG/DL (120-200) LDL Cholesterol 129 MG/DL (0-99) HDL Cholesterol 66.4 MG/DL (40.0-60.0) Test 02/06/18 05:05 White Blood Count 11.7 TH/MM3 (4.0-11.0) Monocytes (%) (Auto) 11.5 % (0.0-8.0) Monocytes # (Auto) 1.3 TH/MM3 (0-0.9) Estimat Glomerular Filtration Rate 86 ML/MIN (>89) Imaging Last Impressions Chest X-Ray 02/04/18 0000 Signed Impressions: Service Date/Time: Sunday, February 04, 2018 23:32 - CONCLUSION: Normal examination. Alexis Corona Jr., MD PE at Discharge GENERAL: Obese patient in no acute distress. HEENT: PERRLA, EOMI. No scleral icterus or conjunctival pallor. No lid lag or facial droop. Facial sunburn CARDIOVASCULAR: Irregularly irregular, and A. fib, HR 110's. No obvious murmurs to auscultation. No chest tenderness to palpation. RESPIRATORY: No obvious rhonchi or wheezing. Clear to auscultation. Breath sounds equal bilaterally. GASTROINTESTINAL: Abdomen soft, non-tender, nondistended. BS normal. MUSCULOSKELETAL: Extremities without clubbing, cyanosis, or edema. No obvious deformities. NEUROLOGICAL: Awake, alert and oriented x4. No focal neurologic deficits. Moving both upper and lower extremities spontaneously. Hospital Course This is a 27-year-old male with no significant PMH of present the ER with complaints of palpitations starting prior to arrival. States he was out fishing all day, then came home to watch golf at which time he had sudden onset of palpitations. Denies recent fever, chills, cough or chest pain. Reports history of similar symptoms in the past, approx 4-5 episodes in the last 1-2 yrs, did not seek medical attention those times, symptoms resolved spontaneously. On arrival, patient noted to be in A. fib with RVR, HR 160s. S/p Cardizem and Adenosine x2 in ER w/ no significant improvement, currently on Cardizem gtt. Denies drug use. Does report drinking approx 8-10 beers today which is usual for him on weekends. No significant caffeine intake. 02/05: patient admitted today and I have been called by Nurse, the patient is on Cardizem drip and continue with PAF heart rate in 150 added one dose of Metoprolol 5 mg one dose and continue metoprolol 25 mg BID. improving condition. 02/06: Seen in his bedroom, stable as per excellence specialist doctor Mumtaz Garcia okay to discharge Will do echo as OP in my office. Dilt [address] Iglesias after discharge. no nausea, vomit or diarrhea. Assessment and Plan A/P: 1. A. fib w/ RVR: New Onset. Acute onset of palpitations, A-fib w/ RVR, HR 160's on arrival, currently on Cardizem gtt, HR 100's. Initial trop negative, check serial cardiac enzymes to eval for ischemia although unlikely. Check TSH, Check U/a and Urine Drug Screen. Admit to [facility], telemetry. Check Echo to eval for valvular abnormality/cardiomyopathy. Seen in his bedroom, stable as per excellence specialist doctor Mumtaz Garcia okay to discharge Will do echo as OP in my office. Dilt [address] Iglesias after discharge. at this time mild Hypertension but the patient is been controlled will need to follow to adjust his medicines at this time asymptomatic. recommended to continue his Medicines. 2. Leukocytosis: WBC 11.4, afebrile. CXR with no acute findings, images reviewed by me. No obvious source of infection. DVT Prophylaxis: SCD/teds. Discharge Planning Discharge Home and follow with excellence specialist to follow Hypertension, and Atrial Fibrillation. Pt Condition on Discharge: Good Discharge Disposition: Discharge Home Discharge Time: <= 30 minutes Discharge Instructions DIET: Follow Instructions for: Heart Healthy Diet Activities you can perform: Regular-No Restrictions Reese Martínez MD Feb 06, 2018 11:20
--- NOTE | 2018-02-06 18:24 | ECHRPT ---
Indication: atrial fib CONCLUSIONS The left ventricular systolic function is low normal with an estimated ejection fraction of 50%. Normal left ventricular size. Mild concentric left ventricular hypertrophy. No regional wall motion abnormalities are present. BP: 136 / 78 HR: 90 Rhythm: Sinus MEASUREMENTS (Male / Female) Normal Values Technical Quality:Good 2D ECHO LV Diastolic Diameter PLAX 4.3 cm 4.2 - 5.9 / 3.9 - 5.3 cm LV Systolic Diameter PLAX 3.2 cm IVS Diastolic Thickness 1.1 cm 0.6 - 1.0 / 0.6 - 0.9 cm LVPW Diastolic Thickness 1.2 cm 0.6 - 1.0 / 0.6 - 0.9 cm LV Relative Wall Thickness 0.5 RV Internal Dim ED PLAX 2.3 cm LVOT Diameter 2.2 cm LA Systolic Diameter LX 2.7 cm 3.0 - 4.0 / 2.7 - 3.8 cm LV Ejection Fraction MOD 4C 53.0 % LV Cardiac Index MOD 4C 2346.9 cm/minm LV Ejection Fraction 4C AL 54.1 % LV Cardiac Index 4C AL 2469.0 cm/minm DOPPLER AV Peak Velocity 113.0 cm/s AV Peak Gradient 5.1 mmHg AI Peak Velocity 134.0 cm/s AI Peak Gradient 7.2 mmHg AI Pressure Half Time 102.0 ms LVOT Peak Velocity 88.4 cm/s LVOT Peak Gradient 3.1 mmHg AV Area Cont Eq pk 3.0 cm MV Area PHT 4.9 cm Mitral E Point Velocity 85.4 cm/s Mitral A Point Velocity 43.4 cm/s Mitral E to A Ratio 2.0 LV E' Lateral Velocity 12.6 cm/s Mitral E to LV E' Lateral Ratio 6.8 LV E' Septal Velocity 8.3 cm/s Mitral E to LV E' Septal Ratio 10.3 FINDINGS LEFT VENTRICLE The left ventricular systolic function is low normal with an estimated ejection fraction of 50%. Normal left ventricular size. Mild concentric left ventricular hypertrophy. No regional wall motion abnormalities are present. RIGHT VENTRICLE Normal right ventricular size and systolic function. LEFT ATRIUM The left atrial size is normal. RIGHT ATRIUM The right atrial size is normal. ATRIAL SEPTUM Normal atrial septal thickness without atrial level shunting by limited color doppler interrogation. AORTA The aortic root and proximal ascending aorta are normal in size on limited imaging. MITRAL VALVE Structurally normal mitral valve. No mitral valve stenosis or regurgitation. AORTIC VALVE Trileaflet aortic valve. No aortic valve stenosis or regurgitation. TRICUSPID VALVE Structurally normal tricuspid valve. No tricuspid valve stenosis or regurgitation. PULMONARY VALVE The pulmonary valve is not well visualized. VESSELS The inferior vena cava is normal in size. PERICARDIUM No pericardial effusion. Kanchan Gallegos MD, FACC (Electronically Signed) Final Date:06 February 2018 18:23
--- NOTE | 2018-02-06 20:42 | EKG ---
Date Performed: 02/04/2018 Time Performed: 22:43:28 PTAGE: 27 years EKG: ATRIAL FIBRILLATION WITH RAPID VENTRICULAR RESPONSE WITH ABERRANT CONDUCTION OR VENTRICULAR PREMATURE COMPLEXES INCOMPLETE RIGHT BUNDLE BRANCH BLOCK ABNORMAL RHYTHM ECG NO PREVIOUS TRACING DOCTOR: Kanchan Gallegos Interpretating Date/Time 02/06/2018 20:39:55
== END 2018-02-06 11:01 | disposition home or self-care (01) | DRG 310 ==
LOC: NEPC 22:29 → NEDA 02-05 01:22 → NEDH 02-05 06:08 → HCIS 02-05 13:34
PROVIDERS: ADMIT Internal Medicine; ATTEND Internal Medicine
DX: I48.0 Paroxysmal atrial fibrillation (principal); I10 Essential (primary) hypertension; R00.0 Tachycardia, unspecified; D72.829 Elevated white blood cell count, unspecified; Z82.49 Family history of ischemic heart disease and other diseases of the circulatory system
CPT/HCPCS: 71045; 80048; 80053; 80061; 80307; 81001; 84443; 84484; 85007; 85025; 85027; 85610; 85730; 93005; 93306; 96365; 96366; 96375; J0153; J7030